=== PATIENT | female | born 1960 | race Two or more races ===

== ENCOUNTER 2021-08-16 05:37 | Inpatient (IN) | payer OTHER ==
[~2021-08-16] VITALS: Ht 165.1 cm; Wt 101.7 kg
[2021-08-16 06:57] LABS: Basophils # (auto) 0 10 ^3/uL (0-0.2); Eosinophils # (auto) 0.1 10 ^3/uL (0-0.8); Monocytes # (auto) 0.4 10 ^3/uL (0-1.3); Monocytes % (auto) 4.3 % (0.0-12.0); Neutrophils # (auto) 8.3 10 ^3/uL (1.6-8.6)
[2021-08-16 06:59] LABS: Basophils % (auto) 0.1 % (0.0-2.0); Eosinophils % (auto) 0.7 % (0.0-7.0); Hematocrit 31.6 % (36.0-46.0); Hemoglobin 10.7 g/dL (12.2-16.2); Lymphocytes # (auto) 0.5 10 ^3/uL (0.4-5.4); Mean Corpuscular Hemoglobin 23.4 pg (28.0-32.0); Mean Corpuscular Hgb Conc. 33.7 g/dL (32.0-36.0); Mean Corpuscular Volume 69.4 fL (80.0-100.0); Neutrophils % (auto) 89.9 % (37.0-80.0); Nucleated Red Blood Cells % 0.1 %; Red Blood Cells 4.55 10^6/uL (4.0-5.20); Red Cell Distribution Width 17.1 % (11.8-14.3); White Blood Cell 9.3 10^3/uL (4.4-10.8)
[2021-08-16 07:18] LABS: Albumin 3.6 g/dL (3.4-5.0); BUN/Creatinine Ratio 12.5; Calcium 8.7 mg/dL (8.5-10.1); Potassium 3.6 mmol/L (3.5-5.1)
[2021-08-16 07:21] LABS: Bilirubin, Total 0.4 mg/dL (0.2-1.0); Total Protein 7.8 g/dL (6.4-8.2)
[2021-08-16] MEDS ORDERED: ACETAMINOPHEN 500 MG TAB PO ONE (07:45)
[2021-08-16 08:10] LABS: Urine Bacteria FEW /hpf (None Seen); Urine Blood Negative /uL (Negative); Urine Specific Gravity 1.009 (1.001-1.035); Urine WBC <1 /hpf (0 - 5)
[2021-08-16] MEDS ORDERED: MORPHINE SULFATE INJ 2 MG/ml SYRG IV PRN (08:45)
[2021-08-16] MEDS ORDERED: ALBUTEROL SULF 2.5 MG/0.5ML(0.5%) NEB SOLN NEB PRN (08:45)
[2021-08-16] MEDS ORDERED: methylPREDNISolone SOD SUCC 125 MG/2 ML VL IM ONE (08:45)
[2021-08-16] MEDS ORDERED: IPRATROPIUM BROM 0.5 MG/2.5ML INH SOL NEB PRN (08:45)
[2021-08-16 09:26] LABS: Cholesterol 155 mg/dL (< 200); HDL Cholesterol 67 mg/dL (40-59); LDL Cholesterol 75 mg/dL (< 100); Triglycerides 58 mg/dL (< 150)
[2021-08-16] MEDS ORDERED: PREG-111 PO (09:26)
[2021-08-16] MEDS ORDERED: TIZA4TAB7 PO (09:26)
[2021-08-16] MEDS ORDERED: OXYC-904 PO (09:26)
[2021-08-16] MEDS ORDERED: [UNRECOGNIZED DRUG - CODE] EACHEYE (09:26)
[2021-08-16] MEDS ORDERED: FAMO20TA58 (09:26)
[2021-08-16] MEDS ORDERED: HYDR200T36 PO (09:26)
[2021-08-16] MEDS ORDERED: TRAZ50TA2 PO (09:26)
[2021-08-16] MEDS ORDERED: LOSA-69 PO (09:26)
[2021-08-16] MEDS ORDERED: PATIENTS OWN MEDICATION (Oxycodone HCl (Oxycodone Hydrochloride) 1 TAB) PO PRN (09:30)
[2021-08-16 09:37] VITALS: BP 151/56
[2021-08-16] MEDS: AZITHROMYCIN 500MG/ 250ML 250 ML IV SCH (09:48)
[2021-08-16] MEDS ORDERED: LOSARTAN POTASSIUM 50 MG TAB PO SCH (10:00)
[2021-08-16] MEDS ORDERED: FAMOTIDINE 20 MG TAB PO SCH (10:00)
[2021-08-16] MEDS ORDERED: metFORMIN HYDROCHLORIDE 500 MG TAB PO SCH (10:00)
[2021-08-16] MEDS: hydrOXYchloroQUINE SULFATE 200 MG TAB PO SCH ×2 (10:15→21:53)
[2021-08-16] MEDS: ALBUTEROL SULF 2.5 MG/0.5ML(0.5%) NEB SOLN NEB SCH ×2 (11:11→18:43)
[2021-08-16] MEDS: IPRATROPIUM BROM 0.5 MG/2.5ML INH SOL NEB SCH ×2 (11:12→18:43)
[2021-08-16 17:00] VITALS: BP 140/80
[2021-08-16 20:00] VITALS: BP 139/70
[2021-08-16] MEDS: methylPREDNISolone SOD SUCC 125 MG/2 ML VL IV SCH (21:51)
[2021-08-16] MEDS: PREGABALIN CAPSULE 75 MG CAP PO SCH (21:53)
[2021-08-16 21:54] VITALS: BP 139/70
[2021-08-16] MEDS ORDERED: traZODone HCL 50 MG TAB PO SCH (22:00)
[2021-08-16] MEDS: KETOROLAC TROMETH 30 MG/ML 1ML VIAL IV PRN (22:39)
[2021-08-17] MEDS ORDERED: TEMAZEPAM 15 MG CAP PO ONE
[2021-08-17] MEDS: diphenhdrAMINE HCL 50 MG/1 ML VL IV PRN (01:45)
[2021-08-17 04:57] VITALS: BP 138/73
[2021-08-17] MEDS: ALBUTEROL SULF 2.5 MG/0.5ML(0.5%) NEB SOLN NEB SCH ×3 (06:34→19:05)
[2021-08-17] MEDS: IPRATROPIUM BROM 0.5 MG/2.5ML INH SOL NEB SCH ×3 (06:34→19:05)
[2021-08-17 07:24] LABS: Basophils # (auto) 0 10 ^3/uL (0-0.2); Basophils % (auto) 0.1 % (0.0-2.0); Eosinophils # (auto) 0 10 ^3/uL (0-0.8); Lymphocytes # (auto) 0.5 10 ^3/uL (0.4-5.4); Monocytes # (auto) 0.2 10 ^3/uL (0-1.3); Neutrophils # (auto) 9.4 10 ^3/uL (1.6-8.6); Red Blood Cells 4.13 10^6/uL (4.0-5.20); White Blood Cell 10.1 10^3/uL (4.4-10.8)
[2021-08-17 07:27] LABS: Hematocrit 28.6 % (36.0-46.0); Hemoglobin 9.7 g/dL (12.2-16.2); Mean Corpuscular Hemoglobin 23.5 pg (28.0-32.0); Mean Corpuscular Hgb Conc. 33.9 g/dL (32.0-36.0); Mean Corpuscular Volume 69.2 fL (80.0-100.0); Monocytes % (auto) 1.7 % (0.0-12.0); Neutrophils % (auto) 93.2 % (37.0-80.0); Red Cell Distribution Width 17.1 % (11.8-14.3)
[2021-08-17 07:28] LABS: Calcium 8.4 mg/dL (8.5-10.1)
[2021-08-17 07:31] LABS: BUN/Creatinine Ratio 19.3; Bilirubin, Total 0.3 mg/dL (0.2-1.0); Total Protein 7.1 g/dL (6.4-8.2)
[2021-08-17] MEDS: methylPREDNISolone SOD SUCC 125 MG/2 ML VL IV SCH (08:21)
[2021-08-17] MEDS: cefTRIAXone 1GM/50ML D5W 50 ML IV SCH (08:21)
[2021-08-17] MEDS: PREGABALIN CAPSULE 75 MG CAP PO SCH (08:21)
[2021-08-17] MEDS: AZITHROMYCIN 500MG/ 250ML 250 ML IV SCH (08:22)
[2021-08-17] MEDS: hydrOXYchloroQUINE SULFATE 200 MG TAB PO SCH (08:22)
[2021-08-17 08:28] VITALS: BP 137/72
[2021-08-17] MEDS: KETOROLAC TROMETH 30 MG/ML 1ML VIAL IV PRN ×2 (10:30→16:59)
[2021-08-17] MEDS ORDERED: VANCOMYCIN PER PHARMACY 0 MG IV SCH (10:30)
[2021-08-17] MEDS: VANCOMYCIN 1GM/250ML 250 ML IV SCH (11:23)
[2021-08-17] MEDS ORDERED: TOBRSUS34 EACHEYE (11:38)
[2021-08-17] MEDS ORDERED: BUSP15TA60 PO (11:38)
[2021-08-17] MEDS ORDERED: AZEL0.054 EACHEYE (11:38)
[2021-08-17] MEDS ORDERED: SERT-160 PO (11:38)
[2021-08-17 13:00] VITALS: BP 123/66
[2021-08-17 17:00] VITALS: BP 120/69
[2021-08-17 22:00] VITALS: BP 148/65
[2021-08-18] MEDS: PREGABALIN CAPSULE 75 MG CAP PO SCH ×3 (00:09→21:49)
[2021-08-18] MEDS: methylPREDNISolone SOD SUCC 125 MG/2 ML VL IV SCH ×3 (00:09→21:49)
[2021-08-18] MEDS: hydrOXYchloroQUINE SULFATE 200 MG TAB PO SCH ×3 (00:10→21:49)
[2021-08-18] MEDS: VANCOMYCIN 1GM/250ML 250 ML IV SCH ×3 (00:10→05:38)
[2021-08-18] MEDS: diphenhdrAMINE HCL 50 MG/1 ML VL IV PRN ×2 (00:11→23:50)
[2021-08-18] MEDS: KETOROLAC TROMETH 30 MG/ML 1ML VIAL IV PRN ×2 (00:11→20:13)
[2021-08-18 04:28] VITALS: BP 127/66
[2021-08-18] MEDS: IPRATROPIUM BROM 0.5 MG/2.5ML INH SOL NEB SCH ×3 (06:21→19:01)
[2021-08-18] MEDS: ALBUTEROL SULF 2.5 MG/0.5ML(0.5%) NEB SOLN NEB SCH ×3 (06:21→19:01)
[2021-08-18 06:43] LABS: Basophils # (auto) 0 10 ^3/uL (0-0.2); Basophils % (auto) 0.1 % (0.0-2.0); Eosinophils # (auto) 0 10 ^3/uL (0-0.8); Lymphocytes # (auto) 0.4 10 ^3/uL (0.4-5.4); Mean Corpuscular Hemoglobin 23.3 pg (28.0-32.0); Mean Corpuscular Hgb Conc. 32.9 g/dL (32.0-36.0); Monocytes # (auto) 0.2 10 ^3/uL (0-1.3)
[2021-08-18 06:45] LABS: Hematocrit 29.9 % (36.0-46.0); Hemoglobin 9.8 g/dL (12.2-16.2); Lymphocytes % (auto) 3.6 % (10.0-50.0); Mean Corpuscular Volume 70.8 fL (80.0-100.0); Monocytes % (auto) 1.9 % (0.0-12.0); Neutrophils # (auto) 11.4 10 ^3/uL (1.6-8.6); Neutrophils % (auto) 94.4 % (37.0-80.0); Red Blood Cells 4.22 10^6/uL (4.0-5.20); Red Cell Distribution Width 17.4 % (11.8-14.3); White Blood Cell 12.1 10^3/uL (4.4-10.8)
[2021-08-18 06:53] LABS: Calcium 8.7 mg/dL (8.5-10.1); Potassium 4.6 mmol/L (3.5-5.1)
[2021-08-18 06:59] LABS: BUN/Creatinine Ratio 33.3
[2021-08-18] MEDS: cefTRIAXone 1GM/50ML D5W 50 ML IV SCH (08:52)
[2021-08-18] MEDS: AZITHROMYCIN 500MG/ 250ML 250 ML IV SCH (08:52)
[2021-08-18 09:00] VITALS: BP 127/68
[2021-08-18 13:00] VITALS: BP 149/97
[2021-08-18] MEDS ORDERED: busPIRone HCL 10 MG TAB PO SCH (14:00)
[2021-08-18 17:00] VITALS: BP 151/91
[2021-08-18] MEDS: hydrALAZINE HCL 20 MG/ML VL IV PRN (17:06)
[2021-08-18 22:00] VITALS: BP 125/57
[2021-08-19] MEDS: KETOROLAC TROMETH 30 MG/ML 1ML VIAL IV PRN ×2 (01:24→09:31)
[2021-08-19] MEDS: hydrALAZINE HCL 20 MG/ML VL IV PRN (01:29)
[2021-08-19] MEDS ORDERED: ACETAMINOPHEN 325 MG TAB PO ONE (03:30)
[2021-08-19 05:00] VITALS: BP 136/74
[2021-08-19] MEDS: ALBUTEROL SULF 2.5 MG/0.5ML(0.5%) NEB SOLN NEB SCH ×3 (06:00→12:00)
[2021-08-19] MEDS: IPRATROPIUM BROM 0.5 MG/2.5ML INH SOL NEB SCH ×3 (06:00→12:00)
[2021-08-19 07:26] LABS: Basophils # (auto) 0 10 ^3/uL (0-0.2); Eosinophils # (auto) 0 10 ^3/uL (0-0.8); Hemoglobin 10.3 g/dL (12.2-16.2); Lymphocytes # (auto) 0.5 10 ^3/uL (0.4-5.4)
[2021-08-19 07:29] LABS: Basophils % (auto) 0.3 % (0.0-2.0); Hematocrit 30.3 % (36.0-46.0); Lymphocytes % (auto) 6.2 % (10.0-50.0); Mean Corpuscular Hemoglobin 23.4 pg (28.0-32.0); Mean Corpuscular Hgb Conc. 33.9 g/dL (32.0-36.0); Monocytes # (auto) 0.2 10 ^3/uL (0-1.3); Monocytes % (auto) 1.9 % (0.0-12.0); Neutrophils # (auto) 7.6 10 ^3/uL (1.6-8.6); Neutrophils % (auto) 91.6 % (37.0-80.0); Nucleated Red Blood Cells % 0.2 %; Red Blood Cells 4.38 10^6/uL (4.0-5.20); Red Cell Distribution Width 17.1 % (11.8-14.3); White Blood Cell 8.3 10^3/uL (4.4-10.8)
[2021-08-19 07:52] LABS: BUN/Creatinine Ratio 31.4; Calcium 8.6 mg/dL (8.5-10.1); Potassium 4.5 mmol/L (3.5-5.1)
[2021-08-19 08:03] LABS: Mean Corpuscular Volume 69.1 fL (80.0-100.0)
[2021-08-19 09:00] VITALS: BP 133/81
[2021-08-19] MEDS: methylPREDNISolone SOD SUCC 125 MG/2 ML VL IV SCH (09:12)
[2021-08-19] MEDS: PREGABALIN CAPSULE 75 MG CAP PO SCH (09:13)
[2021-08-19] MEDS: cefTRIAXone 1GM/50ML D5W 50 ML IV SCH (09:13)
[2021-08-19] MEDS: hydrOXYchloroQUINE SULFATE 200 MG TAB PO SCH (09:13)
[2021-08-19] MEDS: AZITHROMYCIN 500MG/ 250ML 250 ML IV SCH (09:21)
[2021-08-19] MEDS: diphenhdrAMINE HCL 50 MG/1 ML VL IV PRN (09:31)
[2021-08-19] MEDS ORDERED: SERTRALINE HCL 50 MG TAB PO SCH (10:00)
[2021-08-19] MEDS ORDERED: PRED20TA2 PO (12:26)
[2021-08-19] MEDS ORDERED: LEVO750T64 PO (12:26)
[2021-08-19 13:00] VITALS: BP 131/83
[2021-08-19 13:57] VITALS: BP 154/61
== END 2021-08-19 17:27 | disposition home or self-care (01) | DRG 193 ==
LOC: EDBD 05:37 → ER 05:37 → OVERFLOW 08:42 → WEST WING 16:32
PROVIDERS: ADMIT Registered Nurse; ATTEND Internal Medicine Pulmonary Disease
DX: J18.9 Pneumonia, unspecified organism (principal); J96.01 Acute respiratory failure with hypoxia; J44.0 Chronic obstructive pulmonary disease with (acute) lower respiratory infection; J44.1 Chronic obstructive pulmonary disease with (acute) exacerbation; E11.65 Type 2 diabetes mellitus with hyperglycemia; I12.9 Hypertensive chronic kidney disease with stage 1 through stage 4 chronic kidney disease, or unspecified chronic kidney disease; Z20.822 Contact with and (suspected) exposure to COVID-19; N18.2 Chronic kidney disease, stage 2 (mild); E07.9 Disorder of thyroid, unspecified; M35.00 Sjogren syndrome, unspecified; E11.22 Type 2 diabetes mellitus with diabetic chronic kidney disease; D63.8 Anemia in other chronic diseases classified elsewhere; E66.9 Obesity, unspecified; Z68.37 Body mass index [BMI] 37.0-37.9, adult; Z88.0 Allergy status to penicillin; Z88.5 Allergy status to narcotic agent; Z90.710 Acquired absence of both cervix and uterus; Z90.49 Acquired absence of other specified parts of digestive tract; Z79.84 Long term (current) use of oral hypoglycemic drugs
CPT/HCPCS: 36415; 71045; 71250; 80048; 80053; 80061; 81001; 83036; 83605; 83880; 84484; 85025; 87040; 87077; 87186; 93005; 94640; 96372; 99291; G0378; J0696; J1885